=== PATIENT | male | born 1975 | race Caucasian/White ===

== ENCOUNTER → 2017-03-28 | Outpatient (CLI) | payer BC ==
[~2017-03-28] MED LIST: BUPR200T2 PO; BUPR8TAB SL; BUSP10TA PO; GABA-586 PO; GABA600T2 PO; LISI40TA PO; MESA1.2T PO; OMEP20CA9 PO; OXYC10TA PO; ZOLP5TAB5 PO
[2017-03-28 12:15] LABS: BASO # 0.1 x10^3/uL (0.0-0.2); BASO % 1 % (0-3); EOS % 2 % (0-3); HEMATOCRIT 46.8 % (39.0-53.0); HEMOGLOBIN 15.9 g/dL (13.0-17.5); LYMPH # 2.3 x10^3/uL (1.0-4.8); LYMPH % 26 % (24-48); MEAN CORPUSCULAR HEMOGLOBIN 31 pg (25-35); MEAN CORPUSCULAR HGB CONC 34 g/dL (31-37); MEAN CORPUSCULAR VOLUME 91 fL (79-100); MONO % 9 % (0-9); NEUT % 62 % (31-73); PLATELET COUNT 300 x10^3/uL (140-400); RED BLOOD COUNT 5.15 x10^6/uL (4.30-5.70); RED CELL DISTRIBUTION WIDTH 12.5 % (11.5-14.5); WHITE BLOOD COUNT 9.1 x10^3/uL (4.0-11.0)
[2017-03-28 12:28] LABS: PROTHROMBIN TIME PATIENT 12.6 SEC (11.7-14.0)
[2017-03-28 12:37] LABS: ALBUMIN 3.6 g/dL (3.4-5.0); ALBUMIN/GLOBULIN RATIO 1.1 (1.0-1.7); CALCIUM 8.4 mg/dL (8.5-10.1); GFR 81.6; POTASSIUM 3.8 mmol/L (3.5-5.1); TOTAL BILIRUBIN 0.3 mg/dL (0.2-1.0); TOTAL PROTEIN 6.9 g/dL (6.4-8.2)
== END | disposition home or self-care (01) ==
LOC: SURGPAT 10:08
PROVIDERS: ATTEND Neurological Surgery
DX: Z01.818 Encounter for other preprocedural examination (principal); M48.061 Spinal stenosis, lumbar region without neurogenic claudication; M54.16 Radiculopathy, lumbar region; M43.16 Spondylolisthesis, lumbar region
CPT/HCPCS: 36415; 80053; 85025; 85610; 85730; 87641

== ENCOUNTER → 2017-04-13 | Outpatient (CLI) | payer BC ==
[2017-04-09 11:00] VITALS: BP 122/68
[~2017-04-13] MED LIST changes: +DOCU-109 PO; +METH750T2 PO
--- NOTE | 2017-04-13 17:19 | KCIC ---
CT scan of the lumbar spine without contrast 04/13/2017 CLINICAL HISTORY: Low back pain which radiates down the right leg. History of recent lumbar spine surgery. TECHNIQUE: Unenhanced, contiguous, 0.625 mm axial sections were obtained through the lumbar spine. 3 mm reconstructed sagittal, axial and coronal images were obtained. One or more of the following individualized dose reduction techniques were utilized for this study: 1. Automated exposure control. 2. Adjustment of the mA and/or kV according to patient size. 3. Use of iterative reconstruction technique. Findings: Comparison is made to a CT scan of the lumbar spine performed at [facility] dated 04/07/2017. Sagittal and coronal reconstructed images demonstrate bilateral spondylolysis at L5 with grade 2 spondylolisthesis of L5 in relation to S1. The patient is post laminectomy and posterior lateral fusion using pedicle screws and stabilizing rods along with bone graft material at this level new since the previous study. The fusion hardware is intact. Small collections of air are seen in this area consistent with the patient's history recent surgery. The anterolisthesis of L5 in relation S1 appears improved slightly since the patient's previous CT scan. Degenerative changes consisting of disc space narrowing, vertebral endplate sclerosis and mild to moderate anterior and posterior vertebral body osteophyte formation are seen at this level. On the axial images at the L1-2, L2-3, L3-4 and L4-5 disc spaces there are minimal to mild generalized disc bulges. Degenerative changes are seen involving the facet joints bilaterally. These findings do not result in significant central spinal canal or neural foraminal stenosis. At the L5-S1 disc space there is a moderate generalized disc bulge. Moderate posterior vertebral body osteophyte formation is seen which extends into the neural foramen. Degenerative changes are seen involving the facet joints bilaterally. These findings when combined with the anterolisthesis at this level do not result in significant central spinal canal stenosis. Severe bilateral neural foraminal stenosis is seen. IMPRESSION: 1. Bilateral spondylolysis at L5 with grade 2 spondylolisthesis of L5 in relation to S1. 2. Post laminectomy and posterolateral fusion at L5-S1. The anterolisthesis at L5 appears improved slightly since the patient's previous CT scan as outlined above. 3. The changes of degenerative disc disease are seen involving the lumbar spine. These findings do not result in significant central spinal canal stenosis at any level. Severe bilateral neural foraminal stenosis is seen at L5-S1. Electronically signed by: Samuel Austin MD (04/13/2017 5:16 PM) [id number]
== END | disposition home or self-care (01) ==
LOC: KCIC CT 08:31
PROVIDERS: ATTEND Neurological Surgery
DX: M51.16 Intervertebral disc disorders with radiculopathy, lumbar region (principal); M43.16 Spondylolisthesis, lumbar region
CPT/HCPCS: 72131

== ENCOUNTER → 2017-05-18 | Outpatient (CLI) | payer BC ==
[2017-04-09 11:00] VITALS: BP 122/68
--- NOTE | 2017-05-18 14:54 | RAD ---
Indication: Fusion in April. Persistent pain. Technique: 2 views of the lumbar spine are submitted for review. Comparison is a CT from April 13, 2017. Findings: Pedicle screw and chiqui instrumentation at the lumbosacral junction is noted. Degree of anterolisthesis is similar to prior. There is no lucency about the hardware. There is no fracture. There is no additional malalignment. Impression: Postsurgical changes at the lumbosacral junction.
== END | disposition home or self-care (01) ==
LOC: RAD 12:15
PROVIDERS: ATTEND Neurological Surgery
DX: M43.16 Spondylolisthesis, lumbar region (principal); Z98.890 Other specified postprocedural states
CPT/HCPCS: 72100

== ENCOUNTER → 2017-05-23 | Outpatient (CLI) | payer BC ==
[2017-04-09 11:00] VITALS: BP 122/68
--- NOTE | 2017-05-23 15:44 | RAD ---
Indication: Back pain status post lumbar fusion. Lumbar radiculopathy Technique: CT lumbar spine without IV contrast with multiplanar reformats. Comparison: Study from 04/07/2017. Findings: Status post posterior fusion of L5 and S1 vertebral bodies. There are 5 lumbar vertebral bodies. Grade 2 anterolisthesis of L5 over S1. Mild anterior compression deformity of T11 vertebral body without retropulsion the spinal canal. No lytic or blastic lesions. No acute fractures. Segmental analysis: L1-L2: Mild circumferential disc bulge. No facet arthropathy. No neural foramina narrowing or spinal canal stenosis. L2-L3: No significant disc bulge or herniation. Mild bilateral facet arthropathy. No neural foramina narrowing or spinal canal stenosis. L3-L4: Minimal circumferential disc bulge. No significant facet arthropathy. No neural foramina narrowing or spinal canal stenosis. L4-L5: No disc bulge or herniation. Severe bilateral neuroforaminal narrowing. No spinal canal stenosis. L5-S1: Bilateral pars defect. Intervertebral disc space narrowing with large bridging osteophytes. Severe bilateral neural foramina narrowing. Evaluation of posterior elements is limited at L5-S1 secondary to spinal hardware. Impression: 1. Stable grade 2 anterolisthesis of L5 over S1 secondary to bilateral pars defect. 2. Stable changes of L5-S1 posterior fusion. 3. Severe bilateral neural foramina narrowing at L4-L5 and L5-S1. PQRS Compliance Statement: One or more of the following individualized dose reduction techniques were utilized for this examination: 1. Automated exposure control 2. Adjustment of the mA and/or kV according to patient size 3. Use of iterative reconstruction technique
== END | disposition home or self-care (01) ==
LOC: CT 14:03
PROVIDERS: ATTEND Neurological Surgery
DX: M25.78 Osteophyte, vertebrae (principal); M54.16 Radiculopathy, lumbar region; M43.26 Fusion of spine, lumbar region
CPT/HCPCS: 72131

== ENCOUNTER → 2017-06-23 | Outpatient (CLI) | payer OTHER, BC ==
[2017-06-23 14:18] LABS: ADD MAN DIFF? NO
[2017-06-23 14:20] LABS: BASO # 0.1 x10^3/uL (0.0-0.2); BASO % 1 % (0-3); EOS # 0.2 x10^3/uL (0.0-0.7); EOS % 2 % (0-3); HEMATOCRIT 45.1 % (39.0-53.0); HEMOGLOBIN 15.2 g/dL (13.0-17.5); LYMPH # 2.5 x10^3/uL (1.0-4.8); LYMPH % 22 % (24-48); MEAN CORPUSCULAR HEMOGLOBIN 30 pg (25-35); MEAN CORPUSCULAR HGB CONC 34 g/dL (31-37); MEAN CORPUSCULAR VOLUME 89 fL (79-100); MONO # 0.8 x10^3/uL (0.0-1.1); MONO % 7 % (0-9); NEUT # 7.9 x10^3uL (1.8-7.7); NEUT % 69 % (31-73); PLATELET COUNT 343 x10^3/uL (140-400); RED BLOOD COUNT 5.04 x10^6/uL (4.30-5.70); RED CELL DISTRIBUTION WIDTH 12.2 % (11.5-14.5); WHITE BLOOD COUNT 11.5 x10^3/uL (4.0-11.0)
[2017-06-23 14:31] LABS: PARTIAL THROMBOPLASTIN TIME 26 SEC (24-38)
[2017-06-23 14:39] LABS: ALBUMIN 3.6 g/dL (3.4-5.0); ALBUMIN/GLOBULIN RATIO 1.1 (1.0-1.7); ALK PHOS 79 U/L (46-116); ALT (SGPT) 23 U/L (16-63); ANION GAP 12 (6-14); AST (SGOT) 13 U/L (15-37); BLOOD UREA NITROGEN 16 mg/dL (8-26); BUN/CREATININE RATIO 13 (6-20); CALCIUM 8.5 mg/dL (8.5-10.1); CARBON DIOXIDE 25 mmol/L (21-32); CHLORIDE 103 mmol/L (98-107); CREATININE 1.2 mg/dL (0.7-1.3); GFR 66.1; GLUCOSE 114 mg/dL (70-99); SODIUM 140 mmol/L (136-145); TOTAL BILIRUBIN 0.3 mg/dL (0.2-1.0); TOTAL PROTEIN 6.8 g/dL (6.4-8.2)
[2017-06-23 21:10] LABS: MRSA BY PCR Negative (Negative)
== END | disposition home or self-care (01) ==
LOC: SURGPAT 13:16
DX: Z01.818 Encounter for other preprocedural examination (principal); M54.16 Radiculopathy, lumbar region; M43.16 Spondylolisthesis, lumbar region
CPT/HCPCS: 36415; 80053; 85025; 85610; 85730; 87641

== ENCOUNTER 2017-06-30 08:21 | Inpatient (IN) | payer OTHER, BC ==
[~2017-06-30 08:21] MED LIST changes: -BUPR200T2 PO; -BUPR8TAB SL; -BUSP10TA PO; -DOCU-109 PO; -GABA-586 PO; -GABA600T2 PO; +LIDOCAINE 1% PF 2 ML VIAL. ID; -LISI40TA PO; -MESA1.2T PO; -METH750T2 PO; -OMEP20CA9 PO; +ONDANSETRON PF 4 MG/2 ML VIAL. IV; -OXYC10TA PO; -ZOLP5TAB5 PO; +fentaNYL PF VIAL 100 MCG/2 ML VIAL IV
[2017-06-30] MEDS: IV RINGERS,LACTATED 1000ML 1,000 ML IV (08:54)
[2017-06-30] MEDS ORDERED: ROCURONIUM 50 MG/5 ML VIAL. (09:02)
[2017-06-30] MEDS ORDERED: 0.9 % SODIUM CHLORIDE 50 ML VIAL. IJ (09:02)
[2017-06-30] MEDS ORDERED: REMIFENTANIL 2 MG VIAL. IV (09:02)
[2017-06-30] MEDS ORDERED: PROPOFOL 50 ML IV ×3 (09:02→13:43)
[2017-06-30] MEDS ORDERED: SUCCINYLCHOLINE 200 MG/10 ML VIAL. (09:02)
[2017-06-30] MEDS ORDERED: fentaNYL PF VIAL 100 MCG/2 ML VIAL (09:02)
[2017-06-30] MEDS ORDERED: PROPOFOL 20 ML IV (09:02)
[2017-06-30] MEDS ORDERED: DEXAMETHASONE SOD PHOS 20 MG/5 ML VIAL. (10:53)
[2017-06-30] MEDS ORDERED: DESFLURANE > 120 MINUTES IH (10:53)
[2017-06-30] MEDS ORDERED: ONDANSETRON PF 4 MG/2 ML VIAL. (10:54)
[2017-06-30] MEDS ORDERED: PHENYLEPHRINE in 0.9% NACL PF 1 MG/10 ML SYRINGE. IV (11:08)
[2017-06-30] MEDS ORDERED: PHENYLEPHRINE 10 MG/ML VIAL. (11:16)
[2017-06-30] MEDS ORDERED: ePHEDrine PF IN SALINE 50 MG/5 ML DISP.SYRIN IV (11:24)
[2017-06-30] MEDS: BACITRACIN 50,000 UNIT in IV NORMAL SALINE 1000ML BAG 1,000 ML IRR (11:38)
[2017-06-30] MEDS: KETOROLAC 60 MG/2 ML INJ FOR OR. (11:38)
[2017-06-30] MEDS: BUPIVAC MPF-EPI 0.5%-1:200000 30 ML VIAL. INJ (11:38)
[2017-06-30] MEDS: THROMBIN TOPICAL 20,000 UNIT SPRAY.SYRN KIT TP (11:38)
[2017-06-30] MEDS: GELATIN SPONGE SIZE 100. (11:38)
[2017-06-30] MEDS ORDERED: REMIFENTANIL 1 MG VIAL. IV (14:22)
[2017-06-30] MEDS ORDERED: ESMOLOL 100 MG/10 ML VIAL. IV (14:29)
[2017-06-30] MEDS ORDERED: 0.9 % SODIUM CHLORIDE 10 ML DISP.SYRIN. IV (15:30)
[2017-06-30] MEDS ORDERED: ONDANSETRON PF 4 MG/2 ML VIAL. IV (15:30)
[2017-06-30] MEDS ORDERED: diphenhydrAMINE HCL 25 MG CAPSULE PO (15:30)
[2017-06-30] MEDS ORDERED: MAGNESIUM HYDROXIDE 2,400 MG/30 ML ORAL.SUSP. PO (15:30)
[2017-06-30] MEDS ORDERED: diphenhydrAMINE 50 MG/ML VIAL IV (15:30)
[2017-06-30] MEDS ORDERED: ZOLPIDEM 5 MG TABLET. PO (15:30)
[2017-06-30] MEDS ORDERED: CALCIUM CARBONATE 500 MG TAB.CHEW PO (15:30)
[2017-06-30] MEDS ORDERED: MAG HYDROX/ALUMINUM HYD/SIMETH 30 ML ORAL.SUSP PO (15:30)
[2017-06-30] MEDS ORDERED: MORPHINE SULFATE 2 MG/ML DISP.SYRIN. ×2 (15:53→16:14)
[2017-06-30] MEDS: fentaNYL PF VIAL 100 MCG/2 ML VIAL IV ×7 (15:57→21:56)
[2017-06-30] MEDS: MORPHINE SULFATE 2 MG/ML DISP.SYRIN. IV ×4 (16:05→16:41)
[2017-06-30] MEDS: PROCHLORPERAZINE 10 MG/2 ML VIAL. IV ×2 (16:32→16:41)
[2017-06-30] MEDS: HYDROmorphone 2 MG/ML VIAL IV ×3 (16:36→16:58)
[2017-06-30] MEDS: POTASSIUM CL 20MEQ D5-0.45NACL 1,000 ML IV (17:18)
[2017-06-30] MEDS: LISINOPRIL 40 MG TABLET. PO (17:19)
[2017-06-30] MEDS: ceFAZolin SODIUM IV Push 1 GM VIAL. IVP (19:49)
[2017-06-30] MEDS: busPIRone 10 MG TABLET. PO (20:58)
[2017-06-30] MEDS: GABAPENTIN 300 MG CAPSULE. PO (20:59)
[2017-06-30] MEDS: METHOCARBAMOL 750 MG TABLET PO (20:59)
[2017-06-30] MEDS: DOCUSATE SODIUM 100 MG CAPSULE. PO (20:59)
[2017-06-30] MEDS ORDERED: DOCUSATE SODIUM 100 MG CAPSULE. PO (21:00)
[2017-06-30] MEDS ORDERED: ceFAZolin SODIUM 1 GM in IV DEXTROSE 5% 50 ML IV (22:00)
[2017-06-30] MEDS ORDERED: oxyCODONE IR 5 MG TABLET PO (22:00)
[2017-06-30] MEDS: oxyCODONE IR 5 MG TABLET PO (22:31)
[2017-07-01] MEDS: fentaNYL PF VIAL 100 MCG/2 ML VIAL IV ×7 (01:31→23:09)
[2017-07-01] MEDS: oxyCODONE IR 5 MG TABLET PO ×5 (04:20→21:34)
[2017-07-01] MEDS: ceFAZolin SODIUM IV Push 1 GM VIAL. IVP ×2 (04:21→10:11)
[2017-07-01] MEDS: PANTOPRAZOLE 40 MG TABLET.DR. PO (06:38)
[2017-07-01] MEDS: POTASSIUM CL 20MEQ D5-0.45NACL 1,000 ML IV (06:40)
[2017-07-01] MEDS: METHOCARBAMOL 750 MG TABLET PO ×3 (08:48→21:02)
[2017-07-01] MEDS: busPIRone 10 MG TABLET. PO ×2 (08:48→21:02)
[2017-07-01] MEDS: GABAPENTIN 300 MG CAPSULE. PO ×2 (08:48→21:02)
[2017-07-01] MEDS: DEXAMETHASONE SOD PHOS 20 MG/5 ML VIAL. IV (11:12)
[2017-07-01] MEDS: DOCUSATE SODIUM 100 MG CAPSULE. PO ×2 (11:12→21:02)
[2017-07-01] MEDS: MESALAMINE 1.2 GM TABLET.DR PO (11:13)
[2017-07-01] MEDS: LISINOPRIL 40 MG TABLET. PO (11:15)
[2017-07-01] MEDS: DEXAMETHASONE SOD PHOS 4 MG/ML VIAL IV (17:39)
[2017-07-01] MEDS: POLYETHYLENE GLYCOL 3350 17 GM PACKET. PO (21:02)
[2017-07-01] MEDS: ZOLPIDEM 5 MG TABLET. PO (21:36)
[2017-07-02] MEDS: DEXAMETHASONE SOD PHOS 4 MG/ML VIAL IV ×3 (00:09→12:38)
[2017-07-02] MEDS: oxyCODONE IR 5 MG TABLET PO ×5 (01:42→19:44)
[2017-07-02] MEDS: fentaNYL PF VIAL 100 MCG/2 ML VIAL IV ×2 (08:14→17:43)
[2017-07-02] MEDS: POLYETHYLENE GLYCOL 3350 17 GM PACKET. PO ×2 (08:21→19:44)
[2017-07-02] MEDS: GABAPENTIN 300 MG CAPSULE. PO ×2 (08:22→19:44)
[2017-07-02] MEDS: DOCUSATE SODIUM 100 MG CAPSULE. PO ×2 (08:22→19:44)
[2017-07-02] MEDS: MESALAMINE 1.2 GM TABLET.DR PO (08:22)
[2017-07-02] MEDS: busPIRone 10 MG TABLET. PO ×2 (08:23→19:44)
[2017-07-02] MEDS: LISINOPRIL 40 MG TABLET. PO (08:23)
[2017-07-02] MEDS: PANTOPRAZOLE 40 MG TABLET.DR. PO (08:23)
[2017-07-02] MEDS: METHOCARBAMOL 750 MG TABLET PO ×3 (08:23→19:44)
[2017-07-02] MEDS: FLUTICASONE 50MCG/NASAL SPRAY 16GM BOTTLE. NS (10:41)
[2017-07-02] MEDS: ZOLPIDEM 5 MG TABLET. PO (22:39)
[2017-07-03] MEDS: oxyCODONE IR 5 MG TABLET PO ×4 (04:10→20:32)
[2017-07-03] MEDS: fentaNYL PF VIAL 100 MCG/2 ML VIAL IV ×4 (04:38→23:44)
[2017-07-03] MEDS: POLYETHYLENE GLYCOL 3350 17 GM PACKET. PO ×2 (08:24→20:32)
[2017-07-03] MEDS: MESALAMINE 1.2 GM TABLET.DR PO (08:25)
[2017-07-03] MEDS: DOCUSATE SODIUM 100 MG CAPSULE. PO ×2 (08:26→20:32)
[2017-07-03] MEDS: LISINOPRIL 40 MG TABLET. PO (08:26)
[2017-07-03] MEDS: GABAPENTIN 300 MG CAPSULE. PO ×2 (08:27→20:31)
[2017-07-03] MEDS: METHOCARBAMOL 750 MG TABLET PO ×3 (08:27→20:31)
[2017-07-03] MEDS: PANTOPRAZOLE 40 MG TABLET.DR. PO (08:27)
[2017-07-03] MEDS: busPIRone 10 MG TABLET. PO ×2 (08:28→20:32)
[2017-07-03] MEDS: FLUTICASONE 50MCG/NASAL SPRAY 16GM BOTTLE. NS (09:00)
[2017-07-03] MEDS: ACETAMINOPHEN 325 MG TABLET. PO (20:31)
[2017-07-03] MEDS: ZOLPIDEM 5 MG TABLET. PO (21:20)
[2017-07-04] MEDS: oxyCODONE IR 5 MG TABLET PO ×3 (02:37→19:53)
[2017-07-04] MEDS: fentaNYL PF VIAL 100 MCG/2 ML VIAL IV ×7 (05:40→14:30)
[2017-07-04] MEDS ORDERED: BUPIVAC MPF-EPI 0.5%-1:200000 10 ML VIAL. (07:17)
[2017-07-04] MEDS ORDERED: fentaNYL PF VIAL 100 MCG/2 ML VIAL (08:17)
[2017-07-04] MEDS ORDERED: ONDANSETRON PF 4 MG/2 ML VIAL. IV (08:30)
[2017-07-04] MEDS ORDERED: LIDOCAINE 1% PF 2 ML VIAL. ID (08:30)
[2017-07-04] MEDS ORDERED: fentaNYL PF VIAL 100 MCG/2 ML VIAL IV (08:30)
[2017-07-04] MEDS ORDERED: fentaNYL PF VIAL 250 MCG/5 ML VIAL (08:34)
[2017-07-04] MEDS ORDERED: MIDAZOLAM HCL/PF 2 MG/2 ML VIAL. (08:34)
[2017-07-04] MEDS ORDERED: REMIFENTANIL 2 MG VIAL. IV (08:35)
[2017-07-04] MEDS ORDERED: ROCURONIUM 50 MG/5 ML VIAL. (08:35)
[2017-07-04] MEDS: IV RINGERS,LACTATED 1000ML 1,000 ML IV (08:47)
[2017-07-04] MEDS: DOCUSATE SODIUM 100 MG CAPSULE. PO ×2 (09:00→21:00)
[2017-07-04] MEDS: FLUTICASONE 50MCG/NASAL SPRAY 16GM BOTTLE. NS (09:00)
[2017-07-04] MEDS: busPIRone 10 MG TABLET. PO ×2 (09:00→21:00)
[2017-07-04] MEDS: METHOCARBAMOL 750 MG TABLET PO ×3 (09:00→21:00)
[2017-07-04] MEDS: POLYETHYLENE GLYCOL 3350 17 GM PACKET. PO ×2 (09:00→21:00)
[2017-07-04] MEDS: THROMBIN TOPICAL 20,000 UNIT SPRAY.SYRN KIT TP (09:57)
[2017-07-04] MEDS: BUPIVAC MPF-EPI 0.5%-1:200000 30 ML VIAL. INJ (09:57)
[2017-07-04] MEDS: BACITRACIN 50,000 UNIT in IV NORMAL SALINE 1000ML BAG 1,000 ML IRR (09:57)
[2017-07-04] MEDS: GELATIN SPONGE SIZE 100. (09:57)
[2017-07-04] MEDS: KETOROLAC 60 MG/2 ML INJ FOR OR. (09:57)
[2017-07-04] MEDS ORDERED: NEOSTIGMINE METHYLSULFATE 5 MG/5 ML SYRINGE. (10:21)
[2017-07-04] MEDS ORDERED: GLYCOPYRROLATE 1 MG/5 ML VIAL. (10:21)
[2017-07-04] MEDS ORDERED: PHENYLEPHRINE 10 MG/ML VIAL. (10:36)
[2017-07-04] MEDS ORDERED: PHENYLEPHRINE in 0.9% NACL PF 1 MG/10 ML SYRINGE. IV (10:36)
[2017-07-04] MEDS ORDERED: REMIFENTANIL 1 MG VIAL. IV (12:29)
[2017-07-04] MEDS ORDERED: SEVOFLURANE > 120 MINUTES. IH (12:45)
[2017-07-04] MEDS ORDERED: DESFLURANE > 120 MINUTES IH (12:45)
[2017-07-04] MEDS: PROCHLORPERAZINE 10 MG/2 ML VIAL. IV (13:36)
[2017-07-04] MEDS ORDERED: MINERAL OIL/PETROLATUM,WHITE OPHTH OINT 3.5GM TUBE. (13:41)
[2017-07-04] MEDS ORDERED: ONDANSETRON PF 4 MG/2 ML VIAL. (13:41)
[2017-07-04] MEDS: MORPHINE SULFATE 2 MG/ML DISP.SYRIN. IV ×4 (13:41→14:59)
[2017-07-04] MEDS ORDERED: DEXAMETHASONE SOD PHOS 20 MG/5 ML VIAL. (13:41)
[2017-07-04] MEDS ORDERED: PROPOFOL 50 ML IV ×2 (13:41)
[2017-07-04] MEDS: HYDROmorphone 2 MG/ML VIAL IV ×4 (13:54→14:36)
[2017-07-04] MEDS ORDERED: ceFAZolin SODIUM 1 GM in IV DEXTROSE 5% 50 ML IV (14:00)
[2017-07-04] MEDS: GABAPENTIN 300 MG CAPSULE. PO ×2 (15:43→21:00)
[2017-07-04] MEDS: PANTOPRAZOLE 40 MG TABLET.DR. PO (15:44)
[2017-07-04] MEDS: MESALAMINE 1.2 GM TABLET.DR PO (15:44)
[2017-07-04] MEDS: LISINOPRIL 40 MG TABLET. PO (15:45)
[2017-07-04] MEDS: ceFAZolin SODIUM IV Push 1 GM VIAL. IVP (17:50)
[2017-07-05] MEDS: oxyCODONE IR 5 MG TABLET PO ×5 (00:05→21:11)
[2017-07-05] MEDS: ceFAZolin SODIUM IV Push 1 GM VIAL. IVP ×2 (01:13→09:19)
[2017-07-05] MEDS: fentaNYL PF VIAL 100 MCG/2 ML VIAL IV (03:10)
[2017-07-05] MEDS: FLUTICASONE 50MCG/NASAL SPRAY 16GM BOTTLE. NS (09:00)
[2017-07-05] MEDS: GABAPENTIN 300 MG CAPSULE. PO ×2 (09:15→21:06)
[2017-07-05] MEDS: METHOCARBAMOL 750 MG TABLET PO ×3 (09:16→21:06)
[2017-07-05] MEDS: MESALAMINE 1.2 GM TABLET.DR PO (09:16)
[2017-07-05] MEDS: LISINOPRIL 40 MG TABLET. PO (09:17)
[2017-07-05] MEDS: busPIRone 10 MG TABLET. PO ×2 (09:17→21:06)
[2017-07-05] MEDS: PANTOPRAZOLE 40 MG TABLET.DR. PO (09:17)
[2017-07-05] MEDS: POLYETHYLENE GLYCOL 3350 17 GM PACKET. PO ×2 (09:17→21:06)
[2017-07-05] MEDS: DOCUSATE SODIUM 100 MG CAPSULE. PO ×2 (09:21→21:06)
[2017-07-05] MEDS: CEPHALEXIN 250 MG CAPSULE. PO ×3 (11:00→21:06)
[2017-07-05] MEDS: ACETAMINOPHEN 325 MG TABLET. PO ×2 (13:10→19:48)
[2017-07-05] MEDS: LACTOBACILLUS RHAMNOSUS GG 1 CAPSULE. PO (21:06)
[2017-07-05] MEDS: ZOLPIDEM 5 MG TABLET. PO (21:06)
[2017-07-06] MEDS: oxyCODONE IR 5 MG TABLET PO ×4 (01:17→15:05)
[2017-07-06] MEDS: POLYETHYLENE GLYCOL 3350 17 GM PACKET. PO (08:43)
[2017-07-06] MEDS: PANTOPRAZOLE 40 MG TABLET.DR. PO (08:45)
[2017-07-06] MEDS: DOCUSATE SODIUM 100 MG CAPSULE. PO (08:45)
[2017-07-06] MEDS: LACTOBACILLUS RHAMNOSUS GG 1 CAPSULE. PO (08:45)
[2017-07-06] MEDS: CEPHALEXIN 250 MG CAPSULE. PO ×2 (08:45→12:51)
[2017-07-06] MEDS: ACETAMINOPHEN 325 MG TABLET. PO ×2 (08:45→15:05)
[2017-07-06] MEDS: busPIRone 10 MG TABLET. PO (08:45)
[2017-07-06] MEDS: MESALAMINE 1.2 GM TABLET.DR PO (08:46)
[2017-07-06] MEDS: GABAPENTIN 300 MG CAPSULE. PO (08:46)
[2017-07-06] MEDS: LISINOPRIL 40 MG TABLET. PO (08:46)
[2017-07-06] MEDS: METHOCARBAMOL 750 MG TABLET PO ×2 (08:52→14:00)
[2017-07-06] MEDS: FLUTICASONE 50MCG/NASAL SPRAY 16GM BOTTLE. NS (09:00)
== END 2017-07-06 15:30 | disposition home or self-care (01) | DRG 460 ==
LOC: OPSVCIP 08:21 → 4 NORTH 07-01 16:47 → 4 SOUTHEST 17:00
PROC: 0SG3071 Fusion of Lumbosacral Joint with Autologous Tissue Substitute, Posterior Approach, Posterior Column, Open Approach (ICD-10-PCS; principal; 2017-06-30 10:30)
PROC: 07DR3ZZ Extraction of Iliac Bone Marrow, Percutaneous Approach (ICD-10-PCS; 2017-06-30 10:30)
PROC: 4A11X4G Monitoring of Peripheral Nervous Electrical Activity, Intraoperative, External Approach (ICD-10-PCS; 2017-06-30 10:30)
PROC: 01NB0ZZ Release Lumbar Nerve, Open Approach (ICD-10-PCS; 2017-06-30 10:46)
PROC: 0SP30AZ Removal of Interbody Fusion Device from Lumbosacral Joint, Open Approach (ICD-10-PCS; 2017-06-30 10:46)
DX: M43.17 Spondylolisthesis, lumbosacral region (principal); F32.9 Major depressive disorder, single episode, unspecified; I10 Essential (primary) hypertension; M54.17 Radiculopathy, lumbosacral region; Z82.0 Family history of epilepsy and other diseases of the nervous system; Z82.49 Family history of ischemic heart disease and other diseases of the circulatory system; Z83.3 Family history of diabetes mellitus; F41.9 Anxiety disorder, unspecified
CPT/HCPCS: 36415; 72131; 76000; 86850; 86900; 86901; 87071; 87075; 87205; 88304; 88311; 97116-GP; 97162-GP; 97164-GP; 97530-GP; C1713; G8978-CK-GP; G8979-CI-GP; J0330; J0690; J0780; J1100; J1170; J1885; J2250; J2270; J2370; J2405; J2704; J2710; J3010; J3490; J7030; J7120

== ENCOUNTER → 2017-09-09 | Outpatient (CLI) | payer OTHER ==
[~2017-09-09] MED LIST changes: +BUPIVACAINE MPF 0.25% 10 ML VIAL.; -LIDOCAINE 1% PF 2 ML VIAL. ID; -ONDANSETRON PF 4 MG/2 ML VIAL. IV; -fentaNYL PF VIAL 100 MCG/2 ML VIAL IV; +methylPREDNISolone ACETATE 80 MG/ML VIAL.
== END ==
LOC: PNCL 09:53
DX: M46.1 Sacroiliitis, not elsewhere classified (principal); I10 Essential (primary) hypertension; K21.9 Gastro-esophageal reflux disease without esophagitis; F41.9 Anxiety disorder, unspecified; F32.9 Major depressive disorder, single episode, unspecified; M19.90 Unspecified osteoarthritis, unspecified site; M53.3 Sacrococcygeal disorders, not elsewhere classified; E66.9 Obesity, unspecified; Z98.1 Arthrodesis status; Z90.49 Acquired absence of other specified parts of digestive tract; Z91.041 Radiographic dye allergy status
CPT/HCPCS: G0260; J1040; J3490